=== PATIENT | male | born 1965 | race Caucasian/White ===

== ENCOUNTER → 2017-07-04 | Outpatient (REF) | payer OTHER ==
[2017-07-04 11:44] LABS: ALBUMIN 4.3 GM/DL (3.2-5.2); ALBUMIN/GLOBULIN RATIO 1.54 (1.00-1.93); ALKALINE PHOSPHATASE 79 U/L (45-117); ALT/SGPT 53 U/L (12-78); ANION GAP 6 MEQ/L (8-16); AST/SGOT 18 U/L (7-37); BILIRUBIN,TOTAL 0.6 MG/DL (0.2-1.0); BLOOD UREA NITROGEN 20 MG/DL (7-18); CALCIUM LEVEL 8.9 MG/DL (8.5-10.1); CARBON DIOXIDE LEVEL 31 MEQ/L (21-32); CHLORIDE LEVEL 106 MEQ/L (98-107); CHOLESTEROL LEVEL 149 MG/DL (<200); CREATININE FOR GFR 0.85 MG/DL (0.70-1.30); GLOMERULAR FILTRATION RATE > 60.0 (>56); GLUCOSE, FASTING 104 MG/DL (70-105); POTASSIUM SERUM 4.5 MEQ/L (3.5-5.1); SODIUM LEVEL 143 MEQ/L (136-145); TOTAL PROTEIN 7.1 GM/DL (6.4-8.2); TRIGLYCERIDES LEVEL 68 MG/DL (<150); URIC ACID 5.7 MG/DL (3.5-7.2)
== END ==
LOC: M LABDRAW1 10:46
PROVIDERS: ATTEND Emergency Medicine
DX: M10.9 Gout, unspecified (principal); I10 Essential (primary) hypertension; N40.1 Benign prostatic hyperplasia with lower urinary tract symptoms
CPT/HCPCS: 36415; 80053; 80061; 84550; G0103

== ENCOUNTER 2017-08-06 11:11 | Emergency (ER) | payer OTHER ==
[2017-08-06] MEDS: ASPIRIN 81 MG CHEW TABLET PO (12:15)
[2017-08-06 12:33] LABS: BASO % 0.5 % (0.0-1.0); EOS # 0.1 10^3/uL (0.0-0.50); EOS % 1.7 % (0.0-3.0); HEMATOCRIT 45.3 % (42.0-52.0); HEMOGLOBIN 15.8 g/dl (14.0-18.0); IMMATURE GRANULOCYTE % 0.5 % (0-0); LYMPH # 2.3 10^3/uL (1.5-4.5); LYMPH % 30.9 % (24.0-44.0); MEAN CORPUSCULAR HEMOGLOBIN 30.2 pg (27.0-33.0); MEAN CORPUSCULAR HGB CONC 34.9 g/dl (32.0-36.5); MEAN CORPUSCULAR VOLUME 86.5 fl (80.0-96.0); MONO # 0.8 10^3/uL (0.0-0.8); MONO % 11.1 % (0.0-5.0); NEUTROPHILS # 4.2 10^3/uL (1.8-7.7); NEUTROPHILS % 55.3 % (36.0-66.0); PLATELET COUNT, AUTOMATED 204 10^3/uL (150-450); RED BLOOD COUNT 5.24 10^6/uL (4.30-6.10); RED CELL DISTRIBUTION WIDTH 12.7 % (11.5-14.5); WHITE BLOOD COUNT 7.5 10^3/uL (4.0-10.0)
[2017-08-06 12:42] LABS: ANION GAP 8 MEQ/L (8-16); BLOOD UREA NITROGEN 19 MG/DL (7-18); CALCIUM LEVEL 8.7 MG/DL (8.5-10.1); CARBON DIOXIDE LEVEL 28 MEQ/L (21-32); CHLORIDE LEVEL 107 MEQ/L (98-107); CPK CREATINE PHOSPHOKINASE 85 U/L (39-308); GLOMERULAR FILTRATION RATE > 60.0 (>56); GLUCOSE, FASTING 106 MG/DL (70-100); POTASSIUM SERUM 4.1 MEQ/L (3.5-5.1); SODIUM LEVEL 143 MEQ/L (136-145); TROPONIN I < 0.02 NG/ML (< 0.10)
[2017-08-06 12:43] LABS: CK-MB VALUE MASS 1.5 NG/ML (0.0-3.6); MB/CK RELATIVE INDEX 1.76 (< OR =4); NT-PRO BNP 5 PG/ML (<125)
[2017-08-06 15:45] LABS: CK-MB VALUE MASS 2.1 NG/ML (0.0-3.6); CPK CREATINE PHOSPHOKINASE 75 U/L (39-308); TROPONIN I < 0.02 NG/ML (< 0.10)
== END 2017-08-06 16:21 | disposition home or self-care (01) ==
LOC: M ED 11:11
DX: R07.9 Chest pain, unspecified (principal); R00.1 Bradycardia, unspecified; I10 Essential (primary) hypertension; G47.30 Sleep apnea, unspecified; K59.00 Constipation, unspecified; M10.9 Gout, unspecified; Z87.891 Personal history of nicotine dependence; Z79.899 Other long term (current) drug therapy
CPT/HCPCS: 71045

== ENCOUNTER → 2018-09-06 | Outpatient (REF) | payer OTHER ==
[~2018-09-06] MED LIST: ALLO100T PO; LISI10TA4 PO; MELO15TA28 PO; META48.53 PO; OMEP40CA2 PO
[2018-09-06 12:08] LABS: BASO % 0.4 % (0.0-1.0); EOS # 0.1 10^3/uL (0.0-0.50); EOS % 1.1 % (0.0-3.0); HEMATOCRIT 40.5 % (42.0-52.0); HEMOGLOBIN 14.4 g/dl (13.5-17.5); LYMPH # 2.5 10^3/uL (1.5-4.5); LYMPH % 33.7 % (24.0-44.0); MEAN CORPUSCULAR HEMOGLOBIN 30.8 pg (27.0-33.0); MEAN CORPUSCULAR HGB CONC 35.6 g/dl (32.0-36.5); MEAN CORPUSCULAR VOLUME 86.5 fl (80.0-96.0); MONO # 0.7 10^3/uL (0.0-0.8); MONO % 9.3 % (0.0-5.0); NEUTROPHILS # 4.1 10^3/uL (1.8-7.7); PLATELET COUNT, AUTOMATED 195 10^3/uL (150-450); RED BLOOD COUNT 4.68 10^6/uL (4.30-6.10); WHITE BLOOD COUNT 7.5 10^3/uL (4.0-10.0)
[2018-09-06 12:19] LABS: ALBUMIN 3.9 GM/DL (3.2-5.2); ALT/SGPT 66 U/L (12-78); BILIRUBIN,TOTAL 0.5 MG/DL (0.2-1.0); BLOOD UREA NITROGEN 12 MG/DL (7-18); CALCIUM LEVEL 8.8 MG/DL (8.5-10.1); CARBON DIOXIDE LEVEL 29 MEQ/L (21-32); CHLORIDE LEVEL 106 MEQ/L (98-107); CHOLESTEROL LEVEL 137 MG/DL (<200); CREATININE FOR GFR 0.73 MG/DL (0.70-1.30); GLOMERULAR FILTRATION RATE > 60.0 (>56); GLUCOSE, FASTING 91 MG/DL (70-100); HDL CHOLESTEROL 55 MG/DL (>40); LDL CHOLESTEROL 73 MG/DL (<100); NON-HDL-C 82 MG/DL; POTASSIUM SERUM 4.1 MEQ/L (3.5-5.1); SODIUM LEVEL 140 MEQ/L (136-145); TOTAL PROTEIN 6.6 GM/DL (6.4-8.2); TRIGLYCERIDES LEVEL 47 MG/DL (<150)
== END ==
LOC: M LABDRAW1 10:03
PROVIDERS: ATTEND Physician Assistant
DX: Z00.00 Encounter for general adult medical examination without abnormal findings (principal); I10 Essential (primary) hypertension; M10.9 Gout, unspecified

== ENCOUNTER → 2019-03-26 | Outpatient (CLI) | payer OTHER ==
[2019-03-26 09:10] LABS: HEMATOCRIT 42.8 % (42.0-52.0); HEMOGLOBIN 14.7 g/dl (13.5-17.5); MEAN CORPUSCULAR HEMOGLOBIN 30.7 pg (27.0-33.0); MEAN CORPUSCULAR HGB CONC 34.3 g/dl (32.0-36.5); MEAN CORPUSCULAR VOLUME 89.4 fl (80.0-96.0); PLATELET COUNT, AUTOMATED 186 10^3/uL (150-450); RED BLOOD COUNT 4.79 10^6/uL (4.30-6.10); WHITE BLOOD COUNT 5.4 10^3/uL (4.0-10.0)
--- NOTE | 2019-03-26 09:11 | ECGEPIP ---
[facility] Test Date: 2019-03-26 Pat Name: WIL TOMAS Department: Room: - Gender: Male Ordnance Technician: SMILEY : 1965 Requested By: Gutierrez Todd Order Number: [id number] Reading MD: Gurvinder Mireles Measurements Intervals [place] Rate: 61 P: 74 OH: 161 QRS: 17 QRSD: 92 T: 34 QT: 409 QTc: 413 Interpretive Statements SINUS RHYTHM Similar to tracing done 08-06-17 Electronically Signed on 03-26-2019 9:11:36 EDT by Gurvinder Mireles
[2019-03-26 09:20] LABS: INR 1.04; PROTHROMBIN TIME 13.3 SECONDS (11.8-14.0)
[2019-03-26 09:29] LABS: ERYTHROCYTE SEDIMENTATION RATE 9 mm/hr (0-20)
[2019-03-26 09:42] LABS: ALBUMIN 3.9 GM/DL (3.2-5.2); ALT/SGPT 28 U/L (12-78); BILIRUBIN,TOTAL 0.5 MG/DL (0.2-1.0); BLOOD UREA NITROGEN 23 MG/DL (7-18); CALCIUM LEVEL 9.4 MG/DL (8.5-10.1); CARBON DIOXIDE LEVEL 27 MEQ/L (21-32); CHLORIDE LEVEL 111 MEQ/L (98-107); CREATININE FOR GFR 0.75 MG/DL (0.70-1.30); GLOMERULAR FILTRATION RATE > 60.0 (>56); GLUCOSE, FASTING 107 MG/DL (70-100); POTASSIUM SERUM 4.2 MEQ/L (3.5-5.1); SODIUM LEVEL 145 MEQ/L (136-145); TOTAL PROTEIN 6.6 GM/DL (6.4-8.2)
--- NOTE | 2019-03-27 03:15 | REP ---
Clinical: Preoperative assessment . Comparison: 08/06/2017 . Technique: PA and lateral. Findings: The mediastinum and cardiac silhouette are normal. The lung otoole are clear and without acute consolidation, effusion, or pneumothorax. The skeletal structures are intact and normal. Impression: 1. No acute cardiopulmonary process. Electronically Signed by Kenneth Zarate MD 03/27/2019 03:06 A
== END ==
LOC: M LAB 08:18
PROVIDERS: ATTEND Orthopaedic Surgery
DX: Z01.818 Encounter for other preprocedural examination (principal); G47.30 Sleep apnea, unspecified; M17.11 Unilateral primary osteoarthritis, right knee

== ENCOUNTER 2019-04-17 11:29 | Inpatient (IN) | payer OTHER ==
--- NOTE | 2019-04-10 16:23 | HPE ---
DATE OF ADMISSION: 04/17/2019 CHIEF COMPLAINT: Right knee pain. HISTORY OF PRESENT ILLNESS: Pardeep is a pleasant, 53-year-old male with progressively worsening right knee pain and stiffness. He has failed to improve with conservative treatment. He has elected for surgery for his continued symptoms. He has pain with weightbearing activities and his activities of daily living. X-rays of his knee are notable for advanced osteoarthritis of the right knee joint. He has consented for a right total knee arthroplasty by Dr. Gutierrez Todd. Medical optimization was performed by Dr. Miladys Pappas. ALLERGIES: NONE. CURRENT MEDICATIONS: - allopurinol 100 mg a day - omeprazole 40 mg a day - meloxicam 15 mg a day - lisinopril 10 mg a day - Metamucil and Tylenol as needed PAST MEDICAL HISTORY: Includes hypertension and gastroesophageal reflux disease (GERD) and gout. PAST SURGICAL HISTORY: Includes meniscus repair and a right bunionectomy. SOCIAL HISTORY: This gentleman continues to work, does not smoke, occasionally drinks alcohol. FAMILY HISTORY: Noncontributory. REVIEW OF SYSTEMS: This patient denies chest pain, heart palpitations, cough, wheezing, difficulty breathing and shortness of breath. They deny abdominal pain, nausea, vomiting, diarrhea or constipation. They deny recent upper respiratory infection or urinary tract infection symptoms. The patient does complain of pain with weightbearing activities in the right knee. PHYSICAL EXAMINATION: General: He is well-nourished, well-developed, in no acute distress, alert male patient. He walks with a moderate limp favoring his right lower extremity. He is not using assistive devices. Vital signs: He is 6 feet, 2, weighs 246.2 pounds with a temperature of 97.7, blood pressure 160/70, pulse of 58, respirations of 18. Neck was supple without adenopathy or jugular venous distension. Lungs were clear to auscultation without rales or wheeze throughout. Heart: Regular rate and rhythm. Abdomen: Bowel sounds were present. Extremities: Examination of the knee revealed intact skin. The patient had decreased range of motion secondary to pain and stiffness. The limb was neurovascularly intact. LABORATORY DATA: Chest x-ray showed no acute cardiopulmonary disease processes. EKG showed sinus rhythm at 61 beats per minute. ProTime 13.3, INR 1.04. CBC was within normal limits with a sedimentation rate of 9, glucose 107, BUN 23, creatinine 0.75, sodium 145, potassium 4.2. IMPRESSION: Symptomatic osteoarthritis of the right knee joint. PLAN: Consented for a right total knee arthroplasty by Dr. Gutierrez Todd.
[~2019-04-17] VITALS: Ht 188 cm; Wt 111.1 kg
[~2019-04-17 11:29] MED LIST changes: +CYCL10TA PO; +LR 1,000 ML IV ONE; +QC A650T3 PO; +ceFAZolin SOD 2 GM in IV 1 EA IV ONE
[2019-04-17] MEDS ORDERED: BUPIVACAINE LIPOSOME/PF 1.3% 20ML VIAL (13.3MG/ML)(EXPAREL)(C9290 PER1MG) As Ordered ONE (12:08)
[2019-04-17] MEDS ORDERED: ceFAZolin 1GM INJ (J0690 PER 500MG) As Ordered ONE (12:08)
[2019-04-17] MEDS ORDERED: EPINEPHrine INJ 1 MG/ML 1ML AMP As Ordered ONE (12:08)
[2019-04-17] MEDS ORDERED: TRANEXAMIC ACID 100 MG/ML 10ML VIAL As Ordered ONE (12:08)
--- NOTE | 2019-04-17 12:32 | HPE ---
DATE OF ADMISSION: 04/17/2019 The patient seen and examined. He wished to go ahead with a right total knee arthroplasty. He understands the nature of this, the risks of bleeding, infection, damage to nerves and vessels, persistent pain, blood clots, medical problems, , among others. A preoperative clearance was obtained.
[2019-04-17] MEDS ORDERED: fentaNYL 100 MCG/2 ML INJECTION (J3010) As Ordered ONE ×2 (12:41→14:10)
[2019-04-17] MEDS ORDERED: MIDAZOLAM INJ 2 MG/2 ML VIAL (J2250) As Ordered ONE ×2 (12:41→14:10)
[2019-04-17] MEDS ORDERED: fentaNYL 100 MCG/2 ML INJECTION (J3010) IV ONE (13:45)
[2019-04-17] MEDS ORDERED: MIDAZOLAM INJ 2 MG/2 ML VIAL (J2250) IV ONE (13:45)
[2019-04-17] MEDS ORDERED: ONDANSETRON 4MG/2ML VIAL (J2405) As Ordered ONE (14:10)
[2019-04-17] MEDS ORDERED: LIDOCAINE 2% INJ 100 MG/5 ML SDV (FOR ANES.) As Ordered ONE (14:10)
[2019-04-17] MEDS ORDERED: PROPOFOL 200 MG/20 ML VIAL As Ordered ONE ×4 (14:10→14:50)
[2019-04-17] MEDS ORDERED: PROPOFOL 500 MG/50 ML VIAL As Ordered ONE (14:10)
[2019-04-17] MEDS ORDERED: ROPIvacaine 0.5% 30 ML INJECTION (J2795 PER 1MG) ONE (15:28)
[2019-04-17] MEDS ORDERED: dexameTHASONE 10 MG/1 ML VIAL PRES.FREE (J1100) ONE (15:28)
[2019-04-17] MEDS ORDERED: EPINEPHrine INJ 1 MG/ML 1ML AMP ONE (15:28)
[2019-04-17] MEDS ORDERED: METOCLOPRAMIDE INJ 10MG/2ML VIAL (J2765) IV PRN (15:45)
[2019-04-17] MEDS ORDERED: ONDANSETRON 4MG/2ML VIAL (J2405) IV PRN ×2 (15:45→16:46)
[2019-04-17] MEDS ORDERED: LR 1,000 ML IV SCH ×2 (15:45→16:46)
[2019-04-17] MEDS ORDERED: MEPERIDINE INJ 25 MG/ML VIAL (J2175) IV PRN (15:45)
--- NOTE | 2019-04-17 15:53 | REP ---
Right knee two views postoperative study: There is a total knee arthroplasty. The components are tightly applied and in satisfactory positions alignment. There is intra-articular air as a postsurgical change. There are skin tori. Electronically Signed by Bradley Frank MD 04/17/2019 03:44 P
[2019-04-17] MEDS: PERCOCET 5MG/325MG TAB PO PRN ×3 (16:05→21:23)
[2019-04-17] MEDS: fentaNYL 100 MCG/2 ML INJECTION (J3010) IV PRN ×4 (16:15→16:30)
[2019-04-17] MEDS ORDERED: ACETAMINOPHEN TAB 650MG DOSE (2X325MG) PO PRN (16:46)
[2019-04-17] MEDS ORDERED: FLEET ENEMA PR PRN (16:46)
[2019-04-17] MEDS ORDERED: MORPHINE 4 MG/ML 1ML VIAL/SYRINGE (J2270) IV PRN ×2 (16:46)
--- NOTE | 2019-04-17 18:42 | RO ---
DATE OF PROCEDURE: 04/17/2019 PREOPERATIVE DIAGNOSIS: Right knee osteoarthritis. POSTOPERATIVE DIAGNOSIS: Right knee osteoarthritis. OPERATIVE PROCEDURE: Right total knee arthroplasty using an Attune rotating platform posterior stabilized size 7 femur, size 8 tibial tray, 10 polyethylene, 38 patellar button. SURGEON: Gutierrez Todd MD OFFICE ASSISTANT RECEPTIONIST: DEMETRIA Marshall ANESTHESIA: ESTIMATED BLOOD LOSS: 50 mL COMPLICATIONS: None. INDICATIONS This is a 53-year-old gentleman who has had gradually worsening knee pain with severe arthritis and wished to go ahead with a knee replacement. DESCRIPTION OF PROCEDURE The patient was taken to the operating room and placed in the supine position after spinal anesthesia was induced. The right lower extremity was prepped and draped. Tourniquet was inflated. Time-out performed. I then created a longitudinal incision over the anterior aspect of the knee. Sharp dissection was carried down through subcutaneous tissue. I then performed a medial parapatellar arthrotomy per routine, everted the patella, flexed the knee up, used the canal initiating reamer on the femoral side, followed by the intramedullary guide set at 5 degrees of valgus and 9 mm cut. This was pinned in place and the distal femoral cut was made. I then sized the femur to be a 7 and the sizing block was then secured with the pins in the end of the femur in the usual fashion. The remaining four cuts were made. He had very dense sclerotic bone. I then directed attention to the tibia. The tibial alignment guide was placed in the appropriate amount of valgus and posterior slope. Again, he had very significant sclerosis on the medial side. I did have to somewhat recut the medial side just because the blade tended to skive up. The excess bone was removed. I then used a assessment coordinator on either side, removed the soft tissue and osteophytes from either side of the knee. I then prepared the sulcus cut and the tibial tray was sized to be an 8. I then drilled and broached, placed the trial component and it was noted that with the PCL intact that there was some tightness in flexion beyond 90 degrees and it was causing the femoral component to spit out. I tried to free up the PCL but this did not seem to solve the issue so I elected to go with a posterior stabilized knee which would allow a little more freedom in terms of balancing. The guide was then secured on the end of the femur. This was pinned in place and the remaining three cuts were made removing excess bone. The trial components were placed and the size 10 polyethylene was appropriate. It had excellent stability in flexion/extension and soft tissue balance was appropriate. I then freehand cut the patella, again very sclerotic, removed about 7 or 8 mm of bone, sized to be a 38. Drill holes were placed and this was relatively difficult due to the fact that he had very sclerotic bone. The patella tracked reasonably well but I did have to do a small lateral release in order to allow for it to track more appropriately. I placed the drill holes in the end of the femur, removed the trial components, irrigated copiously and injected the Exparel in the deep tissues and cemented on the components, removing excess bone cement, brought the knee out in extension and cemented on the patella, removed excess bone cement. Placed the TXA in the deep tissues. Then did a final deep irrigation and closed the deep layer with interrupted #1 Vicryl suture in running Stratafix once the cement had hardened. Watertight closure was obtained. I irrigated again and closed the subcu with #2-0 Vicryl and the skin with tori. Sterile dressing was applied. Tourniquet was deflated. He was taken to recovery room in stable condition. There were no known complications. The plan will be routine postop. This is coded as unusually difficult procedure because his bone was extremely sclerotic partly I think due to his young age, which made the cuts much more difficult, added significant time to the case, made it much more difficult to drill the holes in the patella, required recut on the tibial surface because of the sclerotic bone. He also required a lateral release to allow for tracking. The school psychologist assistant was instrumental in holding retractors and assisting mixing the bone cement, assisting in wound closure.
[2019-04-17 19:00] VITALS: BP 166/85
[2019-04-17 20:00] VITALS: BP 158/83
[2019-04-17 21:00] VITALS: BP 155/89
[2019-04-17] MEDS: ceFAZolin SOD 2 GM in IV 1 EA IV SCH (21:23)
[2019-04-17] MEDS: ALLOPURINOL 100 MG TAB PO SCH (21:23)
--- NOTE | 2019-04-17 21:28 | HPEPDOC ---
General Date of Admission Apr 17, 2019 at 11:29 Date of Service: Apr 17, 2019 Chief Complaint The patient is a 53-year-old male admitted with a reason for visit of Osteoarthritis Right Knee. Source: Patient History of Present Illness Consultation report: Consultation requested by Dr Todd Consultation of management of medical commorbidities HPI: This is a 53-year-old male with progressively worsening right knee pain and stiffness. He has failed to improve with conservative treatment. He has elected for surgery for his continued symptoms. Patient was admitted today under orthopedic service for elective right total knee replacement. patient had an uneventful surgery. Hospitalist has been consulted for the management of medical commorbidities. Patient complaints of right knee pain dull aching about 4/10 in intensity, no radiation. The pain is appropriate for this immediately post operative patient. Home Medications Scheduled Allopurinol (Allopurinol) 100 Mg Tab, 2 TAB PO QHS, (Reported) Lisinopril (Lisinopril) 10 Mg Tab, 1 TAB PO DAILY, (Reported) Meloxicam (Meloxicam) 15 Mg Tab, 1 TAB PO DAILY, (Reported) Omeprazole (Omeprazole) 40 Mg Cap, 1 TAB PO DAILY, (Reported) Psyllium Husk (with Sugar) (Metamucil Powder) 48.57 % Pow, 1 PKT PO QHS, (Reported) Scheduled PRN Acetaminophen (Acetaminophen 8 Hour) 650 Mg Tablet.er, 650 MG PO QIDP PRN for pain, (Reported) Allergies Coded Allergies: No Known Allergies (Unverified , 04/17/19) Past Medical History Medical History Hypertension, gout, CLAIRE on CPAP, GERD, obesity Surgical History right meniscus repair and left bunionectomy Family History Patient was adapted so does not know any family history Social History * Smoker: Denies Alcohol: occationally Drugs: denies A-FIB/CHADSVASC A-FIB History Current/History of A-Fib/PAF?: No Review of Systems Constitutional: Denies: Chills, Fever, Night Sweats Eyes: Denies: Pain, Vision change ENT: Denies: Head Aches, Ear Pain, Dysphagia Skin: Denies: Rash, Lesions, Breakdown Pulmonary: Denies: Dyspnea, Cough Cardiovascular: Denies: Chest Pain, Palpitations, Orthopnea, Paroxysmal Noc. Dyspnea, Lt Headedness Gastrointestinal: Denies: Nausea, Vomiting, Abdominal Pain, Diarrhea Genitourinary: Denies: Dysuria, Frequency, Incontinence, Retention Hematologic: Denies: Bruising, Bleeding Excessively Endocrine: Denies: Polydipsia, Polyphagia, Polyuria, Heat Intolerance, Cold Intolerance, Other Endocrine Sx Musculoskeletal: Reports: Joint Pain Psych: Reports: Mood Normal; Denies: Depression, Memory Issues Physical Examination General Exam: Positive: Alert, Cooperative, No Acute Distress Eye Exam: Positive: PERRLA, Conjunctiva & lids normal, EOMI; Negative: Sclera icteric ENT Exam: Positive: Atraumatic, Mucous membr. moist/pink, Pharynx Normal Neck Exam: Positive: Supple; Negative: JVD, thyromegaly Chest Exam: Positive: Clear to auscultation, Normal air movement Heart Exam: Positive: Rate Normal, Regular Rhythm, Normal S1, Normal S2; Negative: Murmurs, Rubs Abdomen Exam: Positive: Normal bowel sounds, Soft; Negative: Tenderness, Hepatospenomegaly Extremity Exam: Positive: Normal pulses; Negative: Clubbing, Cyanosis, Edema Skin Exam: Positive: Nl turgor and temperature; Negative: Breakdown, Lesion Vital Signs Vital Signs Date Time Temp Pulse Resp B/P (MAP) Pulse Ox O2 Delivery O2 Flow Rate FiO2 04/17/19 17:11 16 99 3.0 04/17/19 16:56 54 142/88 (106) 04/17/19 16:30 97.3 Assessment/Plan This is a 53-year-old male with progressively worsening right knee pain and stiffness. He has failed to improve with conservative treatment. He has elected for surgery for his continued symptoms. Patient was admitted today under orthopedic service for elective right total knee replacement. pateint had an uneventful surgery. Hospitalist has been consulted for the management of medical commorbidities. S/P right total knee replacement for advanced OA pain management as per orthopedics dvt prophylaxis as per ortho PT/OT Hypertension continue home med with hold parameters Gout continue allopurinol GERD continue PPI CLAIRE may use own CPAP machine. Plan / VTE VTE Prophylaxis Ordered?: Yes JEFFY BLACK MD Apr 17, 2019 17:58
[2019-04-17 22:00] VITALS: BP 156/85
[2019-04-17 23:00] VITALS: BP 158/89
[2019-04-18] MEDS: PERCOCET 5MG/325MG TAB PO PRN ×5 (01:43→19:45)
[2019-04-18 02:00] VITALS: BP 157/89
[2019-04-18] MEDS: ceFAZolin SOD 2 GM in IV 1 EA IV SCH (05:45)
[2019-04-18 06:00] VITALS: BP 158/96
[2019-04-18 06:36] LABS: HEMATOCRIT 38.7 % (42.0-52.0); HEMOGLOBIN 13.8 g/dl (13.5-17.5); MEAN CORPUSCULAR HEMOGLOBIN 31.5 pg (27.0-33.0); MEAN CORPUSCULAR HGB CONC 35.7 g/dl (32.0-36.5); MEAN CORPUSCULAR VOLUME 88.4 fl (80.0-96.0); PLATELET COUNT, AUTOMATED 199 10^3/uL (150-450); RED BLOOD COUNT 4.38 10^6/uL (4.30-6.10); WHITE BLOOD COUNT 10.7 10^3/uL (4.0-10.0)
[2019-04-18 06:55] LABS: BLOOD UREA NITROGEN 14 MG/DL (7-18); CALCIUM LEVEL 8.6 MG/DL (8.5-10.1); CARBON DIOXIDE LEVEL 27 MEQ/L (21-32); CHLORIDE LEVEL 103 MEQ/L (98-107); CREATININE FOR GFR 0.79 MG/DL (0.70-1.30); GLOMERULAR FILTRATION RATE > 60.0 (>56); GLUCOSE, FASTING 118 MG/DL (70-100); POTASSIUM SERUM 3.7 MEQ/L (3.5-5.1); SODIUM LEVEL 137 MEQ/L (136-145)
[2019-04-18] MEDS ORDERED: PERC5TAB12 PO (07:10)
[2019-04-18] MEDS ORDERED: XARE10TA PO (07:10)
[2019-04-18] MEDS: OMEPRAZOLE 20 MG CAP PO SCH (08:00)
[2019-04-18] MEDS: SENOKOT S TAB PO SCH ×2 (08:00→20:49)
[2019-04-18] MEDS: MOM 30ML SUSPENSION UDC PO SCH (08:01)
[2019-04-18] MEDS: LISINOPRIL 10 MG TAB PO SCH (08:01)
[2019-04-18] MEDS: MIRALAX *UNIT DOSE* 17GM PACKET PO SCH (08:01)
[2019-04-18] MEDS ORDERED: FLUBLOK(EGG FREE)(QUAD)INFLUENZA VACC 0.5ML SYRINGE (90682)18YRS&OLDER IM ONE (09:00)
--- NOTE | 2019-04-18 12:10 | IPNPDOC ---
Subjective Date Seen The patient was seen on 04/18/19. Subjective Chief Complaint/HPI No complaints this morning. No fever or chills, no chest pain or sob, no nausea or vomiting , no abdominal pain. Objective Physical Examination General Exam: Positive: Alert, Cooperative, No Acute Distress Eye Exam: Positive: PERRLA, Conjunctiva & lids normal, EOMI; Negative: Sclera icteric ENT Exam: Positive: Atraumatic, Mucous membr. moist/pink, Pharynx Normal Neck Exam: Positive: Supple; Negative: JVD, thyromegaly Chest Exam: Positive: Clear to auscultation, Normal air movement Heart Exam: Positive: Rate Normal, Regular Rhythm, Normal S1, Normal S2; Negative: Murmurs, Rubs Abdomen Exam: Positive: Normal bowel sounds, Soft; Negative: Tenderness, Hepatospenomegaly Extremity Exam: Positive: Normal pulses; Negative: Clubbing, Cyanosis, Edema Skin Exam: Positive: Nl turgor and temperature; Negative: Breakdown, Lesion Assessment /Plan Assessment This is a 53-year-old male with progressively worsening right knee pain and stiffness. He has failed to improve with conservative treatment. He has elected for surgery for his continued symptoms. Patient was admitted today under orthopedic service for elective right total knee replacement. pateint had an uneventful surgery. Hospitalist has been consulted for the management of medical commorbidities. S/P right total knee replacement for advanced OA pain management as per orthopedics dvt prophylaxis as per ortho PT/OT Hypertension continue home med with hold parameters Gout continue allopurinol GERD continue PPI CLAIRE may use own CPAP machine. Plan/VTE VTE Prophylaxis Ordered?: Yes VS, I&O, 24H, Fishbone Vital Signs/I&O Vital Signs Date Time Temp Pulse Resp B/P (MAP) Pulse Ox O2 Delivery O2 Flow Rate FiO2 04/18/19 09:35 18 04/18/19 08:01 158/96 04/18/19 06:00 98.9 64 98 04/17/19 17:11 3.0 I&O- Last 24 Hours up to 6 AM 04/18/19 06:00 Intake Total 2347 ml Output Total 50 ml Balance 2297 ml Laboratory Data 24H LABS Laboratory Tests 2 04/18/19 06:11: Nucleated Red Blood Cells % (auto) 0.0, Anion Gap 7L, Glomerular Filtration Rate > 60.0, Blood Urea Nitrogen 14, Creatinine 0.79, Sodium Level 137, Potassium Level 3.7, Chloride Level 103, Carbon Dioxide Level 27, Calcium Level 8.6 CBC/BMP Laboratory Tests 04/18/19 06:11 Red Blood Count 4.38, Mean Corpuscular Volume 88.4, Mean Corpuscular Hemoglobin 31.5, Mean Corpuscular Hemoglobin Concent 35.7, Red Cell Distribution Width 12.3, Calcium Level 8.6 JEFFY BLACK MD Apr 18, 2019 12:09
[2019-04-18 15:25] VITALS: BP 151/90
[2019-04-18] MEDS: MORPHINE 15 MG SA TAB PO SCH (17:53)
[2019-04-18] MEDS ORDERED: RIVAROXABAN 10 MG TAB (XARELTO) PO SCH (18:00)
[2019-04-18] MEDS: ALLOPURINOL 100 MG TAB PO SCH (20:49)
[2019-04-18 22:00] VITALS: BP 149/87
[2019-04-19] MEDS: PERCOCET 5MG/325MG TAB PO PRN ×4 (00:27→14:21)
[2019-04-19] MEDS ORDERED: XARE10TA PO (05:46)
[2019-04-19 06:00] VITALS: BP 146/85
[2019-04-19] MEDS: MOM 30ML SUSPENSION UDC PO SCH (09:17)
[2019-04-19] MEDS: MIRALAX *UNIT DOSE* 17GM PACKET PO SCH (09:17)
[2019-04-19] MEDS: OMEPRAZOLE 20 MG CAP PO SCH (09:18)
[2019-04-19] MEDS: MORPHINE 15 MG SA TAB PO SCH (09:18)
[2019-04-19 09:19] VITALS: BP 146/85
[2019-04-19] MEDS: LISINOPRIL 10 MG TAB PO SCH (09:19)
[2019-04-19] MEDS: SENOKOT S TAB PO SCH (09:19)
== END 2019-04-19 17:05 | disposition home health service (06) | DRG 470 ==
LOC: M OR 11:29 → M MS5PR 17:25
PROVIDERS: ADMIT Orthopaedic Surgery; ATTEND Orthopaedic Surgery
PROC: 0SRC0J9 Replacement of Right Knee Joint with Synthetic Substitute, Cemented, Open Approach (ICD-10-PCS; principal; 2019-04-17 14:15)
DX: M17.11 Unilateral primary osteoarthritis, right knee (principal); I10 Essential (primary) hypertension; K21.9 Gastro-esophageal reflux disease without esophagitis; R26.89 Other abnormalities of gait and mobility; E66.9 Obesity, unspecified; M10.9 Gout, unspecified; Z79.899 Other long term (current) drug therapy; Z79.1 Long term (current) use of non-steroidal anti-inflammatories (NSAID); G47.33 Obstructive sleep apnea (adult) (pediatric); Z68.31 Body mass index [BMI] 31.0-31.9, adult; Z87.891 Personal history of nicotine dependence

== ENCOUNTER → 2019-09-13 | Outpatient (REF) | payer OTHER ==
[~2019-09-13] MED LIST changes: -LR 1,000 ML IV ONE; -OMEP40CA2 PO; +OMEP40CA97 PO; +PERC5TAB12 PO; +XARE10TA PO; -ceFAZolin SOD 2 GM in IV 1 EA IV ONE
[2019-09-13 12:02] LABS: BASO % 0.4 % (0.0-1.0); EOS # 0.1 10^3/uL (0.0-0.5); HEMATOCRIT 46.2 % (42.0-52.0); HEMOGLOBIN 15.4 g/dl (13.5-17.5); LYMPH # 2.1 10^3/uL (1.5-5.0); MEAN CORPUSCULAR HEMOGLOBIN 29.1 pg (27.0-33.0); MEAN CORPUSCULAR HGB CONC 33.3 g/dl (32.0-36.5); MEAN CORPUSCULAR VOLUME 87.2 fl (80.0-96.0); MONO # 0.6 10^3/uL (0.0-0.8); MONO % 9.2 % (0.0-5.0); NEUTROPHILS % 57.8 % (36.0-66.0); PLATELET COUNT, AUTOMATED 194 10^3/uL (150-450); WHITE BLOOD COUNT 6.9 10^3/uL (4.0-10.0)
[2019-09-13 12:10] LABS: ALBUMIN 4.3 GM/DL (3.2-5.2); ALT/SGPT 33 U/L (12-78); BILIRUBIN,TOTAL 0.7 MG/DL (0.2-1.0); BLOOD UREA NITROGEN 24 MG/DL (7-18); CARBON DIOXIDE LEVEL 28 MEQ/L (21-32); CHLORIDE LEVEL 105 MEQ/L (98-107); CHOLESTEROL LEVEL 160 MG/DL (<200); CHOLESTEROL RISK RATIO 2.622 (<5); CREATININE FOR GFR 0.78 MG/DL (0.70-1.30); GLOMERULAR FILTRATION RATE > 60.0 (>56); GLUCOSE, FASTING 100 MG/DL (70-100); HDL CHOLESTEROL 61 MG/DL (>40); LDL CHOLESTEROL 91 MG/DL (<100); NON-HDL-C 99 MG/DL; POTASSIUM SERUM 4.3 MEQ/L (3.5-5.1); SODIUM LEVEL 139 MEQ/L (136-145); TOTAL PROTEIN 7.1 GM/DL (6.4-8.2); TRIGLYCERIDES LEVEL 39 MG/DL (<150); URIC ACID 5.5 MG/DL (3.5-7.2)
== END ==
LOC: M LABDRAW1 09:17
PROVIDERS: ATTEND Physician Assistant
DX: M10.9 Gout, unspecified (principal); I10 Essential (primary) hypertension; G47.33 Obstructive sleep apnea (adult) (pediatric); N40.0 Benign prostatic hyperplasia without lower urinary tract symptoms
CPT/HCPCS: 36415; 80053; 80061; 84550; 85025; G0103

== ENCOUNTER → 2020-05-02 | Outpatient (CLI) | payer OTHER ==
[~2020-05-02] MED LIST changes: +CYCL-707 PO; -CYCL10TA PO; +MELO15TA28
== END ==
LOC: M LABSMTC 07:51
PROVIDERS: ATTEND Anesthesiology
DX: Z01.812 Encounter for preprocedural laboratory examination (principal); Z20.828 Contact with and (suspected) exposure to other viral communicable diseases
CPT/HCPCS: C9803; U0003

== ENCOUNTER 2020-05-07 11:55 | Day surgery (SDC) | payer OTHER ==
[~2020-05-07] VITALS: Ht 188 cm; Wt 110.2 kg
[~2020-05-07 11:55] MED LIST changes: +NS 1,000 ML IV ONE
[2020-05-07] MEDS ORDERED: propofoL 200 MG/20 ML VIAL As Ordered ONE (12:34)
[2020-05-07] MEDS ORDERED: LIDOCAINE 2% 100MG/5ML SDV (FOR ANES.) As Ordered ONE (12:34)
[2020-05-07] MEDS ORDERED: fentaNYL 100 MCG/2 ML INJECTION (J3010) As Ordered ONE (12:37)
--- NOTE | 2020-05-07 13:04 | ROOR ---
Patient Name: Pardeep Elena Procedure Date: 05/07/2020 12:46 PM Date of : 1965 Age: 54 Room: [facility] Gender: Male Note Status: Finalized Procedure: Upper GI endoscopy Indications: Heartburn Providers: Gurvinder SPANN MD Referring MD: Miladys Pappas MD Requesting Provider: Medicines: Monitored Anesthesia Care Complications: No immediate complications. Procedure: Pre-Anesthesia Assessment: - The heart rate, respiratory rate, oxygen saturations, blood pressure, adequacy of pulmonary ventilation, and response to care were monitored throughout the procedure. The Endoscope was introduced through the mouth, and advanced to the second part of duodenum. The upper GI endoscopy was accomplished without difficulty. The patient tolerated the procedure well. Findings: The Z-line was variable and was found 38 cm from the incisors. The examined esophagus was normal. Diffuse minimal inflammation characterized by erythema was found in the gastric antrum. Biopsies were taken with a cold forceps for histology. The exam of the stomach was otherwise normal. The examined duodenum was normal. Impression: - Normal esophagus. Z-line variable, 38 cm from the incisors. - Minimal gastritis. Biopsied. - The stomach is otherwise normal. - Normal examined duodenum. Recommendation: - Telephone endoscopist for pathology results in 2 weeks. - Continue present medications. Gurvinder Spann MD Gurvinder SPANN MD 05/07/2020 1:04:11 PM Electronically signed by Gurvinder SPANN MD Number of Addenda: 0 Note Initiated On: 05/07/2020 12:46 PM Estimated Blood Loss: Estimated blood loss: none.
--- NOTE | 2020-05-07 13:19 | ROOR ---
Patient Name: Pardeep Elena Procedure Date: 05/07/2020 12:47 PM Date of : 1965 Age: 54 Room: [facility] Gender: Male Note Status: Finalized Procedure: Colonoscopy Indications: High risk colon cancer surveillance: Personal history of colonic polyps Providers: Gurvinder STEPHEN MD Referring MD: Shola Gasca Requesting Provider: Medicines: Monitored Anesthesia Care Complications: No immediate complications. Procedure: Pre-Anesthesia Assessment: - The heart rate, respiratory rate, oxygen saturations, blood pressure, adequacy of pulmonary ventilation, and response to care were monitored throughout the procedure. The Colonoscope was introduced through the anus and advanced to the terminal ileum, with identification of the appendiceal orifice and IC valve. The colonoscopy was performed without difficulty. The patient tolerated the procedure well. The quality of the bowel preparation was good. Findings: A 5 mm polyp was found in the ascending colon. The polyp was sessile. The polyp was removed with a cold snare. Resection and retrieval were complete. Multiple medium-mouthed diverticula were found in the sigmoid colon. Internal hemorrhoids were found during retroflexion. The hemorrhoids were moderate. The exam was otherwise without abnormality on direct and retroflexion views. Skin tags were found on perianal exam. Impression: - Skin tags were found on perianal exam. - One 5 mm polyp in the ascending colon, removed with a cold snare. Resected and retrieved. - Diverticulosis in the sigmoid colon. - Internal hemorrhoids. - The examination was otherwise normal on direct and retroflexion views. Recommendation: - Repeat colonoscopy in 5 years for surveillance. Gurvinder Stephen MD Gurvinder STEPHEN MD 05/07/2020 1:19:11 PM Electronically signed by Gurvinder STEPHEN MD Number of Addenda: 0 Note Initiated On: 05/07/2020 12:47 PM Estimated Blood Loss: Estimated blood loss: none.
[2020-05-07 13:40] VITALS: BP 132/82
== END 2020-05-07 13:48 | disposition home or self-care (01) ==
LOC: M OPP 11:55
PROVIDERS: ATTEND Internal Medicine Gastroenterology
DX: Z12.11 Encounter for screening for malignant neoplasm of colon (principal); Z86.010 Personal history of colon polyps; D12.2 Benign neoplasm of ascending colon; K64.8 Other hemorrhoids; K57.30 Diverticulosis of large intestine without perforation or abscess without bleeding; K22.8 Other specified diseases of esophagus; K29.70 Gastritis, unspecified, without bleeding; R12 Heartburn; K21.9 Gastro-esophageal reflux disease without esophagitis; G47.30 Sleep apnea, unspecified; Z79.899 Other long term (current) drug therapy; Z79.2 Long term (current) use of antibiotics
CPT/HCPCS: 43239; 45385; 88305; J3010

== ENCOUNTER 2021-02-12 09:17 | Emergency (ER) | payer OTHER ==
[~2021-02-12] VITALS: Ht 188 cm; Wt 111.9 kg
[~2021-02-12 09:17] MED LIST changes: +LISI10TA22 PO; -LISI10TA4 PO; -NS 1,000 ML IV ONE; +OMEP40CA4 PO; -OMEP40CA97 PO
[2021-02-12] MEDS ORDERED: NS 1,000 ML IV SCH (09:40)
[2021-02-12 10:16] LABS: BASO % 0.1 % (0.0-1.0); EOS % 0.4 % (0.0-3.0); HEMATOCRIT 46.2 % (42.0-52.0); HEMOGLOBIN 16.1 g/dl (13.5-17.5); LYMPH # 1.6 10^3/uL (1.5-5.0); LYMPH % 23.5 % (24.0-44.0); MEAN CORPUSCULAR HEMOGLOBIN 30.4 pg (27.0-33.0); MEAN CORPUSCULAR HGB CONC 34.8 g/dl (32.0-36.5); MEAN CORPUSCULAR VOLUME 87.3 fl (80.0-96.0); MONO # 0.7 10^3/uL (0.0-0.8); MONO % 10.3 % (2.0-8.0); NEUTROPHILS # 4.4 10^3/uL (1.5-8.5); NEUTROPHILS % 65.3 % (36.0-66.0); PLATELET COUNT, AUTOMATED 223 10^3/uL (150-450); RED BLOOD COUNT 5.29 10^6/uL (4.30-6.10); WHITE BLOOD COUNT 6.8 10^3/uL (4.0-10.0)
[2021-02-12] MEDS ORDERED: ISOVUE-370 76% 100ML VIAL As Ordered ONE (10:27)
--- NOTE | 2021-02-12 10:59 | REP ---
INDICATION: LLQ pain?divertic. COMPARISON: Abdomen/pelvis CT dated 11/21/2011. TECHNIQUE: Abdomen/pelvis CT with IV contrast. FINDINGS: There are occasional diverticula in the sigmoid colon without diverticulitis. There are occasional diverticula in the colonic hepatic flexure without diverticulitis. There is wall thickening of the colon involving the a hepatic flexure and proximal transverse colon as well as the descending colon and sigmoid colon. This is compatible with inflammatory versus infectious colitis. There is no ascites, adenopathy or pneumoperitoneum. The visualized lung otoole are unremarkable. The hepatic parenchyma, gallbladder, pancreas, spleen, adrenals, kidneys and abdominal aorta are unremarkable. There is no periaortic adenopathy. Pelvis: There is no ascites or adenopathy. The bladder is unremarkable. IMPRESSION: There are occasional colonic diverticula in the hepatic flexure and sigmoid colon without evidence of diverticulitis. There are findings compatible with infectious versus inflammatory colitis in the colonic hepatic flexure, proximal transverse colon, descending colon and sigmoid colon. <Electronically signed by Bradley Frank > 02/12/21 [id number]
[2021-02-12 11:09] LABS: ALBUMIN 4.3 GM/DL (3.2-5.2); BILIRUBIN,DIRECT 0.2 MG/DL (0.0-0.2); BILIRUBIN,TOTAL 0.8 MG/DL (0.2-1.0); TOTAL PROTEIN 7.6 GM/DL (6.4-8.2)
[2021-02-12] MEDS ORDERED: CIPR-249 PO (12:02)
[2021-02-12] MEDS ORDERED: FLAG500T PO (12:02)
[2021-02-12 12:56] VITALS: BP 146/96
== END 2021-02-12 12:58 | disposition home or self-care (01) ==
LOC: M ED 09:17
DX: A09 Infectious gastroenteritis and colitis, unspecified (principal); I10 Essential (primary) hypertension; K21.9 Gastro-esophageal reflux disease without esophagitis; G47.30 Sleep apnea, unspecified; M10.9 Gout, unspecified; K57.32 Diverticulitis of large intestine without perforation or abscess without bleeding; Z79.899 Other long term (current) drug therapy
CPT/HCPCS: 74177; 80047; 80076; 83690; 85025; 96360; 96361; 99284; Q9967

== ENCOUNTER → 2021-06-14 | Outpatient (CLI) | payer OTHER ==
[~2021-06-14] MED LIST changes: +CIPR-249 PO; +FLAG500T PO
--- NOTE | 2021-06-14 13:34 | REP ---
INDICATION: PROSTHETIC LOOSENING. COMPARISON: Radiographs 04/17/2019. TECHNIQUE/RADIOTRACER AND DOSE: Following the intravenous administration of 22 mCi technetium 99 M MDP, images of the bilateral knees are obtained in the blood flow, blood pool and delayed phases of imaging. FINDINGS: There is a photopenic right knee prosthesis. There is mild increased blood flow and blood pooling along the femoral prosthesis. Increased delayed activity is also seen in both femoral condyles and tibial plateaus at the interface between the prosthesis and [place] bone. There is arthritic uptake in the medial left knee joint as well as at the proximal left tibiofibular articulation.. IMPRESSION: Increased blood flow and blood pooling along the right femoral prosthesis. Increased delayed activity in the femoral condyles and tibial plateaus at the interface between prosthesis and [place] bone. Differential diagnosis would include residual postsurgical uptake, loosening or infection. <Electronically signed by Bradley Bellamy > 06/14/21 [id number]
== END ==
LOC: M RAD 10:47
PROVIDERS: ATTEND Physician Assistant
DX: Z96.651 Presence of right artificial knee joint (principal); R93.6 Abnormal findings on diagnostic imaging of limbs
CPT/HCPCS: 78315; A9503

== ENCOUNTER → 2021-06-24 | Outpatient (REF) | payer OTHER ==
[2021-06-24 13:55] LABS: CRYSTALS, BODY FLUID NONE SEEN (NONE SEEN); MUCIN CLOT TEST 3+ (4+); SOURCE, BODY FLUID CRYSTALS RT KNEE
[2021-06-24 13:59] LABS: SOURCE, BODY FLUID RT KNEE; SYNOVIAL FLUID COLOR YELLOW (COLORLESS)
[2021-06-24 14:20] LABS: SOURCE, BODY FLUID GLUCOSE RT KNEE
[2021-06-25 07:12] LABS: BODY FLUID RHEUMATOID SCREEN NEGATIVE (NEGATIVE)
== END ==
LOC: M LAB REF 13:15
PROVIDERS: ATTEND Orthopaedic Surgery
DX: Z01.818 Encounter for other preprocedural examination (principal)

== ENCOUNTER → 2021-12-22 | Outpatient (CLI) | payer OTHER | LOC: M RAD 10:10 | PROVIDERS: ATTEND Orthopaedic Surgery | DX: Z96.651 Presence of right artificial knee joint (principal) | CPT/HCPCS: 78315; A9503 ==

== ENCOUNTER → 2022-09-26 | Outpatient (REF) | payer OTHER | LOC: M LAB REF 17:21 | PROVIDERS: ATTEND Registered Nurse | DX: N39.0 Urinary tract infection, site not specified (principal) ==

== ENCOUNTER → 2022-12-22 | Outpatient (CLI) | payer OTHER ==
[~2022-12-22] MED LIST changes: +ACET1TAB55 PO; +CHLO25TA PO; +META0.52 PO; +SPIR-10 PO
== END ==
LOC: M RAD 08:23
PROVIDERS: ATTEND Physician Assistant Medical
DX: R68.81 Early satiety (principal)
CPT/HCPCS: 78264; A9541

== ENCOUNTER 2023-06-26 11:48 | Day surgery (SDC) | payer OTHER ==
[~2023-06-26] VITALS: Ht 188 cm; Wt 126.1 kg
[~2023-06-26 11:48] MED LIST changes: +NS 1,000 ML IV ONE; +OMEP40CA5 PO; +TUMS500C PO
[2023-06-26] MEDS ORDERED: fentaNYL 100 MCG/2 ML INJECTION As Ordered ONE (12:45)
[2023-06-26] MEDS ORDERED: GLYCOPYRROLATE INJ 0.2 MG/ML 2 ML VIAL As Ordered ONE (14:00)
[2023-06-26] MEDS ORDERED: propofoL 200 MG/20 ML VIAL As Ordered ONE (14:00)
[2023-06-26 14:10] VITALS: TEMP 96.6
[2023-06-26 14:30] VITALS: BP 143/80; O2SAT 97
== END 2023-06-26 14:40 | disposition home or self-care (01) ==
LOC: M OPP 11:48
PROVIDERS: ATTEND Internal Medicine Gastroenterology
DX: Z12.11 Encounter for screening for malignant neoplasm of colon (principal); Z86.010 Personal history of colon polyps; D12.6 Benign neoplasm of colon, unspecified; K63.5 Polyp of colon; K64.8 Other hemorrhoids; K57.30 Diverticulosis of large intestine without perforation or abscess without bleeding; K31.7 Polyp of stomach and duodenum; R12 Heartburn; R13.10 Dysphagia, unspecified; G47.30 Sleep apnea, unspecified; Z99.89 Dependence on other enabling machines and devices; Z79.1 Long term (current) use of non-steroidal anti-inflammatories (NSAID); Z79.2 Long term (current) use of antibiotics; Z79.811 Long term (current) use of aromatase inhibitors; Z79.899 Other long term (current) drug therapy

== ENCOUNTER → 2023-08-29 | Outpatient (REF) ==
[~2023-08-29] MED LIST changes: -NS 1,000 ML IV ONE
== END ==
LOC: M PLAIMG 12:46
PROVIDERS: ATTEND Internal Medicine
DX: M25.562 Pain in left knee (principal); M54.50 Low back pain, unspecified; M17.12 Unilateral primary osteoarthritis, left knee; M51.36 Other intervertebral disc degeneration, lumbar region

== ENCOUNTER 2024-10-03 21:03 | Emergency (ER) | payer OTHER ==
[~2024-10-03] VITALS: Ht 188 cm; Wt 123.6 kg
[2024-10-03 21:08] VITALS: BP 174/94; TEMP 97.9; O2SAT 99
== END 2024-10-03 23:00 | disposition left against medical advice (07) ==
LOC: M ED 21:03
DX: Z53.21 Procedure and treatment not carried out due to patient leaving prior to being seen by health care provider (principal)

== ENCOUNTER → 2025-01-22 | Outpatient (CLI) | payer OTHER ==
[2025-01-22 17:25] LABS: BASO # 0.0 10^3/uL (0.0-0.2); BASO % 0.5 % (0.0-1.0); EOS # 0.1 10^3/uL (0.0-0.5); EOS % 1.3 % (0.0-3.0); LYMPH # 2.1 10^3/uL (1.5-5.0); LYMPH % 26.1 % (24.0-44.0); MONO # 0.9 10^3/uL (0.0-0.8); MONO % 11.1 % (2.0-8.0); NEUTROPHILS # 4.8 10^3/uL (1.5-8.5); NEUTROPHILS % 60.5 % (36.0-66.0); PLATELET COUNT, AUTOMATED 225 10^3/uL (150-450)
[2025-01-22 17:41] LABS: ERYTHROCYTE SEDIMENTATION RATE 14 mm/hr (0-20)
[2025-01-22 17:59] LABS: C REACTIVE PROTEIN QUANTITATIV < 0.50 MG/DL (<1.0)
== END ==
LOC: M PLALAB 14:09
PROVIDERS: ATTEND Neuromusculoskeletal Medicine, Sports Medicine
DX: M25.561 Pain in right knee (principal); Z96.651 Presence of right artificial knee joint

== ENCOUNTER 2025-04-01 09:20 | Day surgery (SDC) | payer OTHER ==
[~2025-04-01] VITALS: Ht 188 cm; Wt 121.5 kg
[~2025-04-01 09:20] MED LIST changes: +ACETAMINOPHEN 1000MG/100ML IV BAG As Ordered ONE; +GLYCOPYRROLATE INJ 0.2 MG/ML 2 ML VIAL As Ordered ONE; +LIDOCAINE 2% 100 MG/5 ML SDV (FOR ANES.) As Ordered ONE; +MIDAZOLAM INJ 2 MG/2 ML VIAL As Ordered ONE; +TRIA1CR80 TOP; +dexAMETHasone 4 MG/ML 1 ML VIAL As Ordered ONE
[2025-04-01 10:55] LABS: CALCIUM LEVEL 9.9 MG/DL (8.5-10.1); CARBON DIOXIDE LEVEL 24 MMOL/L (20-31); CHLORIDE LEVEL 103 MMOL/L (98-107); CREATININE FOR GFR 0.85 MG/DL (0.70-1.30); GLOMERULAR FILTRATION RATE > 90.0 (>56); POTASSIUM SERUM 4.4 MMOL/L (3.5-5.1); SODIUM LEVEL 139 MMOL/L (136-145)
[2025-04-01] MEDS: ceFAZolin SOD 3 GM in DEXTROSE 5% (D5W) MINI-BAG PLU 1... IV ONE (11:24)
[2025-04-01] MEDS: LIDOCAINE W/EPINEPHrine 1% 20 ML VIAL As Ordered ONE (11:40)
[2025-04-01] MEDS ORDERED: KETOROLAC 30 MG/ML 1 ML VIAL As Ordered ONE (12:05)
[2025-04-01] MEDS ORDERED: ONDANSETRON 4MG 2ML VIAL As Ordered ONE (12:05)
[2025-04-01] MEDS: MORPHINE 10 MG/ML 1 ML VIAL As Ordered ONE (12:18)
[2025-04-01] MEDS: EPINEPHrine INJ 1 MG/ML 1ML AMP As Ordered ONE (12:19)
[2025-04-01] MEDS ORDERED: LR 1,000 ML IV SCH (12:35)
[2025-04-01] MEDS ORDERED: HYDROMORPHONE HCL 0.5 MG/0.5 ML SYRINGE IV PRN (12:35)
[2025-04-01] MEDS ORDERED: ONDANSETRON 4MG 2ML VIAL IV PRN (12:35)
[2025-04-01] MEDS ORDERED: HYDR-3713 PO (12:47)
[2025-04-01 13:28] VITALS: BP 148/82; TEMP 97.7; O2SAT 96
== END 2025-04-01 13:49 | disposition home or self-care (01) ==
LOC: M SDC 09:20
PROVIDERS: ATTEND Neuromusculoskeletal Medicine, Sports Medicine
DX: M65.961 Unspecified synovitis and tenosynovitis, right lower leg (principal); M23.41 Loose body in knee, right knee; M10.9 Gout, unspecified; M19.09 Primary osteoarthritis, other specified site; Z96.651 Presence of right artificial knee joint; I10 Essential (primary) hypertension; G47.30 Sleep apnea, unspecified; K58.9 Irritable bowel syndrome, unspecified; N40.0 Benign prostatic hyperplasia without lower urinary tract symptoms; Z79.899 Other long term (current) drug therapy
CPT/HCPCS: 29876; 36415; 80048; 87070; 87075; 87205; 93005; J0131; J0166; J0665; J0688; J1100; J1885; J2250; J2405; J3010

== ENCOUNTER 2025-04-03 09:46 | Outpatient (RCR) | payer OTHER ==
[~2025-04-03 09:46] MED LIST changes: -ACETAMINOPHEN 1000MG/100ML IV BAG As Ordered ONE; -GLYCOPYRROLATE INJ 0.2 MG/ML 2 ML VIAL As Ordered ONE; +HYDR-3713 PO; -LIDOCAINE 2% 100 MG/5 ML SDV (FOR ANES.) As Ordered ONE; -MIDAZOLAM INJ 2 MG/2 ML VIAL As Ordered ONE; -dexAMETHasone 4 MG/ML 1 ML VIAL As Ordered ONE
== END 2025-04-08 ==
LOC: M PT 09:46
PROVIDERS: ATTEND Neuromusculoskeletal Medicine, Sports Medicine
DX: M23.41 Loose body in knee, right knee (principal)

== ENCOUNTER 2025-05-07 09:06 | Outpatient (RCR) | payer OTHER | END 2025-05-09 | LOC: M PT 09:06 | PROVIDERS: ATTEND Neuromusculoskeletal Medicine, Sports Medicine | DX: M23.41 Loose body in knee, right knee (principal) ==

== ENCOUNTER → 2025-05-19 | Outpatient (REF) | payer OTHER | LOC: M LAB REF 16:59 | PROVIDERS: ATTEND Neuromusculoskeletal Medicine, Sports Medicine | DX: M17.12 Unilateral primary osteoarthritis, left knee (principal) ==

== ENCOUNTER 2025-05-29 09:12 | Outpatient (RCR) | payer OTHER | END 2025-06-08 | LOC: M PT 09:12 | PROVIDERS: ATTEND Neuromusculoskeletal Medicine, Sports Medicine | DX: M23.41 Loose body in knee, right knee (principal) ==

== ENCOUNTER 2025-07-08 09:06 | Outpatient (RCR) | payer OTHER | END 2025-07-09 | LOC: M PT 09:06 | PROVIDERS: ATTEND Neuromusculoskeletal Medicine, Sports Medicine | DX: M23.41 Loose body in knee, right knee (principal) ==